=== PATIENT | female | born 1985 | race African-American/Black ===

== ENCOUNTER 2020-05-02 08:05 | Emergency (ER) | payer OTHER, MEDICAID, SELFPAY ==
[2020-05-02 08:15] VITALS: BP 134/63; PULSE 68; RESP 15; TEMP 36.8; O2SAT 100; BMI 19.4
--- NOTE | 2020-05-02 08:23 | DI.CT.S_ITS ---
PROCEDURE: CT HEAD/BRAIN WO CON INDICATIONS: fall, head injury, no recall, loss of consciousness TECHNIQUE: Noncontrast 4.5 mm thick angled axial sections acquired from the foramen magnum to the vertex, with coronal and sagittal reformats. For radiation dose reduction, the following was used: automated exposure control, adjustment of mA and/or kV according to patient size. COMPARISON: [facility], CT, CT CERVICAL SPINE WO CON, 05/02/2020, 8:30. FINDINGS: Image quality: Excellent. CSF spaces: Basal cisterns are patent. No extra-axial fluid collections. Ventricles are normal in size and shape. Brain: No midline shift. No intracranial masses or hemorrhage. Plasencia-white matter interface is normal. Skull and face: Calvarium and visualized facial bones are intact, without suspicious lesions. Sinuses: Visualized sinuses and mastoids are clear. IMPRESSION: Unremarkable intracranial study, without hemorrhage or brain edema. No displaced calvarial fracture is seen. Dictated by: Juan Jose Cruz M.D. on 05/02/2020 at 7:53 Approved by: Juan Jose Cruz M.D. on 05/02/2020 at 7:54
--- NOTE | 2020-05-02 08:23 | DI.CT.S_ITS ---
PROCEDURE: CT CERVICAL SPINE WO CON INDICATIONS: fall, head injury, lateral neck pain, yesterday, self splint TECHNIQUE: Noncontrast 3 mm thick sections acquired from the skull base to the T4 level. Sagittal and coronal reformats were then constructed. For radiation dose reduction, the following was used: automated exposure control, adjustment of mA and/or kV according to patient size. COMPARISON: [facility], CT, CT HEAD/BRAIN WO CON, 05/02/2020, 8:30. FINDINGS: Image quality: Excellent. Bones: No fractures or dislocations. Visualized superior ribs are intact. Soft tissues: Prevertebral soft tissues are normal in thickness. No paravertebral hematomas. No apical pneumothoraces. IMPRESSION: Negative for fracture. Dictated by: Juan Jose Cruz M.D. on 05/02/2020 at 7:54 Approved by: Juan Jose Cruz M.D. on 05/02/2020 at 7:54
--- NOTE | 2020-05-02 08:28 | ED_ITS ---
HPI - Head Injury General Chief complaint: Head Injury Stated complaint: Fell yesterday, head and neck pain Time Seen by Provider: 05/02/20 08:15 Source: patient Mode of arrival: Ambulatory Limitations: no limitations History of Present Illness HPI Narrative: 35-year-old female nonsmoker with noncontributory medical history presents with a chief complaint of a fall yesterday from gone level which resu lted in a loss of consciousness of 3-5 minutes with ongoing nausea and headache. She slipped on the ice from ground level and fell backwards striking her head. She denies any blurred vision or trouble with speech. She denies any focal neurologic findings. She denies any chest pain or shortness of breath or provoking symptoms of the fall. She does have some neck pain which she thinks is largely lateral but also extending into the base of her skull. She takes no blood thinners and denies alcohol or street drugs. Related Data Previous Rx's Medication Instructions Recorded cyclobenzaprine 10 mg PO TID PRN #14 tab 05/02/20 ketorolac 10 mg PO Q6H PRN #14 tab 05/02/20 Allergies Allergy/AdvReac Type Severity Reaction Status Date / Time No Known Drug Allergies Allergy Verified 05/02/20 08:20 Review of Systems Constitutional Constitutional: Denies chills, Denies fatigue, Denies fever(s), Denies frequent falls, Reports headache(s), Denies lethargy and Denies weakness Eyes Eyes: Denies change in vision, Denies eye discharge, Denies irritation and Denies loss of vision ENT Ears, Nose, Mouth, and Throat: Denies change in voice, Denies dizziness, Reports headache(s), Reports neck pain, Denies sore throat and Denies throat swelling Cardiovascular Cardiovascular: Denies chest pain, Denies irregular heart rhythm, Denies lightheadedness, Denies palpitations, Denies dyspnea, Denies dyspnea on exertion and Denies orthopnea Respiratory Respiratory: Denies cough, Denies dyspnea, Denies dyspnea on exertion and Denies wheezing Gastrointestinal Gastrointestinal: Denies abdominal pain, Denies change in bowel habits, Denies diarrhea, Denies nausea and Denies vomiting Musculoskeletal Musculoskeletal: Reports neck pain and Denies numbness Integumentary/Breasts Skin/Breast: Denies pruritus, Denies erythema, Denies rash and Denies wounds Neurologic Neurologic: Denies behavioral changes, Denies confusion, Denies dizziness, Denies frequent falls, Reports headache(s), Denies loss of vision, Denies numbness and Denies weakness Psychiatric Psychiatric: Denies anxiety, Denies behavioral changes, Denies confusion, Denies depression, Denies homicidal ideation and Denies suicidal ideation Endocrine Endocrine: Denies fatigue, Denies flushing and Denies palpitations Hematologic/Lymphatic Hematologic/Lymphatic: Denies easy bruising Allergic/Immunologic Allergic/Immunologic: Denies urticaria, Denies throat swelling and Denies wheezing Patient History Social History Smoking Status: Never smoker Smoking Status: Never smoker alcohol intake frequency: 0-2 drinks per day Substance Use Type: does not use Exam Narrative Exam Narrative: GENERAL: [35] year old patient appears stated age. Well- nourished, well-developed patient, in mild distress. GCS 15 HEAD: Atraumatic. Normocephalic. No laceration or hematoma. No depressed skull fracture EYES: Pupils equal round and reactive. No hyphema Extraocular motions intact. No scleral icterus. No injection or drainage. ENT: Nose without bleeding, purulent drainage. No nasal septal hematoma or hemotympanum Throat without erythema, tonsillar hypertrophy or exudate. Airway patent. NECK: Trachea midline. Tender in the upper midline cervical region, questionable midline, bony tenderness, more so in the paraspinal musculature. No increasing pain with axial loading CARDIOVASCULAR: Regular rate and rhythm without murmurs, gallops, or rubs. RESPIRATORY: Clear to auscultation. Breath sounds equal bilaterally. No wheezes, rales, or rhonchi. GASTROINTESTINAL: Abdomen soft, non-tender, nondistended. EXTREMITIES: No edema or joint tenderness. BACK: Nontender without deformity or crepitance. No flank tenderness. NEURO: AOx3. SKIN: No rash or erythema of visible areas Initial Vital Signs Initial Vital Signs: Vital Signs Temperature 98.3 F 05/02/20 08:15 Pulse Rate 68 05/02/20 08:15 Respiratory Rate 15 05/02/20 08:15 Blood Pressure 134/63 05/02/20 08:15 Pulse Oximetry 100 05/02/20 08:15 Course Orders Ordered: ED Orders 05/02/20 08:23 CT cervical spine wo con Stat CT head/brain wo con Stat Vital Signs Vital signs: Vital Signs - 8 hr 05/02/20 08:15 Temperature 98.3 F Pulse Rate 68 Respiratory Rate 15 Blood Pressure 134/63 Pulse Oximetry 100 MDM - Head Injury Imaging Data CT scan - head: Radiologist's Impression: [address] [id number] Scan ReportSigned Patient: Simone Anne WMR#: [id number]: 1985Acct:[id number]/Sex: 35 / FDate of Service: 05/02/20Loc: EDAccession Number: [id number] Procedure: CT head/brain wo con Ordering Provider: Tha Pino D.O. PROCEDURE: CT HEAD/BRAIN WO CON INDICATIONS: fall, head injury, no recall, loss of consciousness TECHNIQUE: Noncontrast 4.5 mm thick angled axial sections acquired from the foramen magnum to the vertex, with coronal and sagittal reformats. For radiation dose reduction, the following was used: automated exposure control, adjustment of mA and/or kV according to patient size. COMPARISON: [facility], CT, CT CERVICAL SPINE WO CON, 05/02/2020, 8:30. FINDINGS: Image quality: Excellent. CSF spaces: Basal cisterns are patent. No extra-axial fluid collections. Ventricles are normal in size and shape. Brain: No midline shift. No intracranial masses or hemorrhage. Plasencia-white matter interface is normal. Skull and face: Calvarium and visualized facial bones are intact, without suspicious lesions. Sinuses: Visualized sinuses and mastoids are clear. IMPRESSION: Unremarkable intracranial study, without hemorrhage or brain edema. No displaced calvarial fracture is seen. Dictated by: Juan Jose Cruz M.D. on 05/02/2020 at 7:53 Approved by: Juan Jose Cruz M.D. on 05/02/2020 at 7:54 CT - cervical spine: Radiologist's Impression: [address] [id number] Scan ReportSigned Patient: Simone Anne WMR#: [id number]: 1985Acct:[id number]/Sex: 35 / FDate of Service: 05/02/20Loc: EDAccession Number: [id number] Procedure: CT cervical spine wo con Ordering Provider: Tha Pino D.O. PROCEDURE: CT CERVICAL SPINE WO CON INDICATIONS: fall, head injury, lateral neck pain, yesterday, self splint TECHNIQUE: Noncontrast 3 mm thick sections acquired from the skull base to the T4 level. Sagittal and coronal reformats were then constructed. For radiation dose reduction, the following was used: automated exposure control, adjustment of mA and/or kV according to patient size. COMPARISON: [facility], CT, CT HEAD/BRAIN WO CON, 05/02/2020, 8:30. FINDINGS: Image quality: Excellent. Bones: No fractures or dislocations. Visualized superior ribs are intact. Soft tissues: Prevertebral soft tissues are normal in thickness. No paravertebral hematomas. No apical pneumothoraces. IMPRESSION: Negative for fracture. Dictated by: Juan Jose Cruz M.D. on 05/02/2020 at 7:54 Approved by: Juan Jose Cruz M.D. on 05/02/2020 at 7:54 Discharge Plan Departure Patient Disposition: Home Clinical Impression: Acute neck pain Concussion with loss of consciousness Qualifiers: Encounter type: initial encounter Qualified Code(s): S06.0X9A - Concussion with loss of consciousness of unspecified duration, initial encounter Instructions: Concussion Activity Restrictions/Additional Instructions: *You have been diagnosed with [head injury with concussion and spasm of paraspinal neck musculature. Physical exam and imaging is very reassuring.] *What to do: *Take medications as directed *Follow up with your primary care provider in 2-3 days, call for an appointment. Let them know you were seen in the Emergency Department and that we ask that you be seen in follow up *Return to ER if you should have any new, worsening or concerning symptoms, such as [confusion, vision change, persistent vomiting, weakness of your extremities, or other bothersome symptoms] Prescriptions: New cyclobenzaprine 10 mg tablet 10 mg PO TID PRN (Reason: muscle spasm) Qty: 14 RF: 0 ketorolac 10 mg tablet 10 mg PO Q6H PRN (Reason: pain) Qty: 14 RF: 0
[2020-05-02] MEDS: KETOROLAC 60 MG/2 ML VIAL 30 MG IM (09:05)
== END 2020-05-02 09:17 | disposition home or self-care (01) ==
PROVIDERS: Emergency Provider Emergency Medicine
DX: S06.0X9A Concussion with loss of consciousness of unspecified duration, initial encounter (principal); M54.2 Cervicalgia; R11.0 Nausea; R51.9 Headache, unspecified; W00.0XXA Fall on same level due to ice and snow, initial encounter
CPT/HCPCS: 70450; 72125; 96372; 99281; 99284; J1885